=== PATIENT | male | born 1985 | race Caucasian/White ===

== ENCOUNTER 2019-05-18 02:58 | Inpatient (IN) | payer BC ==
[~2019-05-18] VITALS: Ht 185.4 cm; Wt 99.8 kg
[2019-05-18 03:00] VITALS: BP 173/100
[2019-05-18] MEDS ORDERED: MORPHINE SULFATE 4 MG/ML SYR IVP ONE (03:20)
[2019-05-18 03:41] LABS: BASOPHILS % (AUTO) 0.4 % (0.0-2.0); EOSINOPHILS # (AUTO) 0.3 K/uL (0-0.4); EOSINOPHILS % (AUTO) 4.6 % (0.0-4.0); HEMATOCRIT 42.2 % (36-52); HEMOGLOBIN 14.1 g/dL (12.0-18.0); LYMPHOCYTES # (AUTO) 1.6 K/uL (2.0-11.5); LYMPHOCYTES % (AUTO) 24.6 % (20.5-51.1); MEAN CORPUSCULAR HEMOGLOBIN 30 pg (27-31); MEAN CORPUSCULAR HGB CONC 33 g/dL (33-37); MEAN CORPUSCULAR VOLUME 88.6 fL (80-94); MONOCYTES # (AUTO) 0.6 K/uL (0.8-1.0); MONOCYTES % (AUTO) 9.4 % (1.7-9.3); PLATELET COUNT (AUTO) 270 K/uL (140-450); RED BLOOD CELL COUNT(AUTO) 4.76 MIL/uL (4.20-6.10); RED CELL DISTRIBUTION WIDTH 13.3 % (11.6-13.7); WHITE BLOOD COUNT (AUTO) 6.5 K/uL (4.8-10.8)
[2019-05-18 03:57] LABS: ALBUMIN 3.3 g/dL (3.4-5.0); CARBON DIOXIDE 27.9 mmol/L (21-32); CREATININE 0.9 mg/dL (0.7-1.3); POTASSIUM 3.9 mmol/L (3.5-5.1); TOTAL BILIRUBIN 0.6 mg/dL (0.0-1.0)
[2019-05-18] MEDS ORDERED: HYDR-5092 PO (06:47)
[2019-05-18] MEDS ORDERED: ONDANSETRON 4 MG/2 ML VIAL IVP PRN (06:50)
[2019-05-18] MEDS: DEXT 5% / NACL 0.9% 500 ML IV SCH ×4 (06:50→23:00)
[2019-05-18] MEDS ORDERED: ACETAMINOPHEN 325 MG TAB PO PRN (06:50)
[2019-05-18] MEDS ORDERED: metroNIDAZOLE 500 MG/NS PREMIX 100 ML IV SCH (07:11)
[2019-05-18 08:00] VITALS: BP 141/89
[2019-05-18 08:23] LABS: PROTHROMBIN TIME 9.2 secs (10.8-13.4)
[2019-05-18 08:25] LABS: FREE T4 (FREE THYROXINE) 0.99 ng/dL (0.76-1.46); PHOSPHORUS 2.6 mg/dL (2.5-4.9); THYROID STIMULATING HORMONE 2.65 uIU/mL (0.34-3.74)
[2019-05-18] MEDS: LACTOBACILLUS RHAMNOSUS GG 1 EACH CAP PO SCH (08:43)
[2019-05-18] MEDS: DOCUSATE SODIUM 100 MG GELCAP PO SCH ×2 (08:43→21:00)
[2019-05-18] MEDS: HYDROcodone/APAP 7.5/325 MG 1 TAB PO PRN ×3 (09:56→21:36)
[2019-05-18 12:00] VITALS: BP 141/89
[2019-05-18] MEDS: metroNIDAZOLE 500 MG/NS PREMIX 100 ML IV SCH ×2 (13:25→21:34)
[2019-05-18 16:00] VITALS: BP 135/89
[2019-05-18 16:47] LABS: APPEARANCE,URINE CLEAR (CLEAR); BILIRUBIN,URINE NEGATIVE (NEGATIVE); BLOOD, URINE NEGATIVE (NEGATIVE); COLOR,URINE YELLOW (YELLOW); LEUKOCYTE ESTERASE ,URINE NEGATIVE (NEGATIVE); NITRITE, URINE NEGATIVE (NEGATIVE); UGLUCOSE NEGATIVE (NEGATIVE)
[2019-05-18 16:58] LABS: BARBITURATE, URINE NEG. ng/ml (NEG <=200); BENZODIAZEPINE, URINE NEG. ng/mL (NEG <=200); CANNABINOID, URINE NEG. ng/mL (NEG <=50); COCAINE, URINE NEG. ng/mL (NEG <=300); OPIATE, URINE POS. ng/mL (NEG <=2000); PHENCYCLIDINE SCREEN,URINE NEG. ng/mL (NEG <=25)
[2019-05-18 20:00] VITALS: BP 131/86
[2019-05-18] MEDS: ZOLPIDEM 5 MG TAB PO PRN (23:32)
[2019-05-19] MEDS: DEXT 5% / NACL 0.9% 500 ML IV SCH (02:50)
[2019-05-19] MEDS: metroNIDAZOLE 500 MG/NS PREMIX 100 ML IV SCH ×3 (05:40→20:01)
[2019-05-19 06:08] LABS: ANION GAP 9.5 (8-16); CARBON DIOXIDE 28.8 mmol/L (21-32); CREATININE 0.8 mg/dL (0.7-1.3); POTASSIUM 4.3 mmol/L (3.5-5.1)
[2019-05-19 06:23] LABS: CHOL/HDL RATIO 4.3 (1-4.5); MAGNESIUM 1.9 mg/dL (1.8-2.4); PHOSPHORUS 3.2 mg/dL (2.5-4.9)
[2019-05-19 07:03] LABS: BASOPHILS % (AUTO) 0.4 % (0.0-2.0); EOSINOPHILS # (AUTO) 0.3 K/uL (0-0.4); EOSINOPHILS % (AUTO) 5.3 % (0.0-4.0); HEMATOCRIT 42.4 % (36-52); HEMOGLOBIN 14.2 g/dL (12.0-18.0); LYMPHOCYTES # (AUTO) 1.6 K/uL (2.0-11.5); LYMPHOCYTES % (AUTO) 26.2 % (20.5-51.1); MEAN CORPUSCULAR HEMOGLOBIN 30 pg (27-31); MEAN CORPUSCULAR HGB CONC 34 g/dL (33-37); MEAN CORPUSCULAR VOLUME 89.6 fL (80-94); MONOCYTES # (AUTO) 0.6 K/uL (0.8-1.0); MONOCYTES % (AUTO) 10.5 % (1.7-9.3); NEUTROPHILS # (AUTO) 3.5 K/uL (1.8-7.7); NEUTROPHILS % (AUTO) 57.6 % (42.2-75.2); PLATELET COUNT (AUTO) 275 K/uL (140-450); RED BLOOD CELL COUNT(AUTO) 4.73 MIL/uL (4.20-6.10); RED CELL DISTRIBUTION WIDTH 13.3 % (11.6-13.7); WHITE BLOOD COUNT (AUTO) 6.1 K/uL (4.8-10.8)
[2019-05-19 08:00] VITALS: BP 143/96
[2019-05-19] MEDS: LACTOBACILLUS RHAMNOSUS GG 1 EACH CAP PO SCH (08:38)
[2019-05-19] MEDS: DOCUSATE SODIUM 100 MG GELCAP PO SCH ×2 (08:38→20:01)
[2019-05-19] MEDS: DEXT 5% /NACL 0.9% 1,000 ML IV SCH ×5 (08:45→23:58)
[2019-05-19] MEDS ORDERED: BUPIVACAINE-MPF/EPI 0.25% 30 ML VIAL INJ ONE (09:46)
[2019-05-19] MEDS ORDERED: ONDANSETRON 4 MG/2 ML VIAL ONE (09:49)
[2019-05-19] MEDS ORDERED: SUCCINYLCHOLINE CHLORIDE 200 MG/10 ML VIAL IVP ONE (09:49)
[2019-05-19] MEDS ORDERED: GLYCOPYRROLATE 0.2 MG/ML VIAL ONE (09:49)
[2019-05-19] MEDS ORDERED: KETOROLAC 30 MG/ML VIAL ONE (09:49)
[2019-05-19] MEDS ORDERED: PROPOFOL 200 MG/20 ML VIAL IV ONE (09:49)
[2019-05-19] MEDS ORDERED: NEOSTIGMINE 1:1000 10 MG/10 ML VIAL ONE (09:49)
[2019-05-19] MEDS ORDERED: DESFLURANE 240 ML BTL INH ONE (09:49)
[2019-05-19] MEDS ORDERED: DEXAMETHASONE 4 MG/ML VIAL ONE (09:49)
[2019-05-19] MEDS ORDERED: ROCURONIUM 50 MG/5 ML VIAL IV ONE (09:49)
[2019-05-19] MEDS ORDERED: HYDROmorphone PFS 2 MG/ML SYR ONE ×3 (09:59→11:35)
[2019-05-19] MEDS ORDERED: fentaNYL 0.05 MG/ML VIAL ONE (09:59)
[2019-05-19] MEDS ORDERED: ONDANSETRON 4 MG/2 ML VIAL IVP PRN (11:10)
[2019-05-19] MEDS: HYDROmorphone 1 MG/ML AMP IVP PRN ×4 (11:20→11:50)
[2019-05-19] MEDS ORDERED: DOCU-299 PO (11:49)
[2019-05-19] MEDS: HYDROcodone/APAP 7.5/325 MG 1 TAB PO PRN (12:10)
[2019-05-19] MEDS ORDERED: KETOROLAC 30 MG/ML VIAL IVP SCH (13:00)
[2019-05-19 16:00] VITALS: BP 131/78
[2019-05-19] MEDS: HYDROcodone/APAP 10/325 MG 1 TAB TAB PO PRN (16:30)
[2019-05-19 19:58] VITALS: BP 145/89
[2019-05-19] MEDS: KETOROLAC 15 MG/ML VIAL IVP PRN (20:01)
[2019-05-20 00:02] VITALS: BP 143/81
[2019-05-20] MEDS: ZOLPIDEM 5 MG TAB PO PRN (00:06)
[2019-05-20 04:00] VITALS: BP 135/94
[2019-05-20] MEDS: KETOROLAC 15 MG/ML VIAL IVP PRN ×2 (04:03→09:30)
[2019-05-20] MEDS: metroNIDAZOLE 500 MG/NS PREMIX 100 ML IV SCH ×2 (04:03→12:45)
[2019-05-20 06:41] LABS: ANION GAP 11.4 (8-16); CARBON DIOXIDE 27.4 mmol/L (21-32); CREATININE 0.7 mg/dL (0.7-1.3); POTASSIUM 3.8 mmol/L (3.5-5.1)
[2019-05-20 06:47] LABS: MAGNESIUM 2.1 mg/dL (1.8-2.4); PHOSPHORUS 3.6 mg/dL (2.5-4.9)
[2019-05-20 07:23] LABS: BASOPHILS % (AUTO) 0.1 % (0.0-2.0); EOSINOPHILS % (AUTO) 0.2 % (0.0-4.0); HEMATOCRIT 39.9 % (36-52); HEMOGLOBIN 13.4 g/dL (12.0-18.0); LYMPHOCYTES # (AUTO) 1.6 K/uL (2.0-11.5); LYMPHOCYTES % (AUTO) 15.6 % (20.5-51.1); MEAN CORPUSCULAR HEMOGLOBIN 30 pg (27-31); MEAN CORPUSCULAR HGB CONC 34 g/dL (33-37); MEAN CORPUSCULAR VOLUME 89.9 fL (80-94); MONOCYTES # (AUTO) 0.9 K/uL (0.8-1.0); MONOCYTES % (AUTO) 8.4 % (1.7-9.3); NEUTROPHILS % (AUTO) 75.7 % (42.2-75.2); PLATELET COUNT (AUTO) 283 K/uL (140-450); RED BLOOD CELL COUNT(AUTO) 4.44 MIL/uL (4.20-6.10); RED CELL DISTRIBUTION WIDTH 13.5 % (11.6-13.7); WHITE BLOOD COUNT (AUTO) 10.6 K/uL (4.8-10.8)
[2019-05-20] MEDS: HYDROcodone/APAP 10/325 MG 1 TAB TAB PO PRN ×2 (07:33→12:41)
[2019-05-20 08:00] VITALS: BP 144/92
[2019-05-20] MEDS ORDERED: IBUP200C97 PO (08:36)
[2019-05-20] MEDS: LACTOBACILLUS RHAMNOSUS GG 1 EACH CAP PO SCH (09:30)
[2019-05-20] MEDS: DOCUSATE SODIUM 100 MG GELCAP PO SCH (09:30)
[2019-05-20 11:18] LABS: ALBUMIN 3.1 g/dL (3.4-5.0); BILIRUBIN,DIRECT 0.1 mg/dL (0.0-0.3); TOTAL BILIRUBIN 0.7 mg/dL (0.0-1.0)
== END 2019-05-20 16:10 | disposition home or self-care (01) | DRG 417 ==
LOC: MED 02:58 → MTU 06:58
PROVIDERS: ADMIT General Practice; ATTEND General Practice
PROC: 0FT44ZZ Resection of Gallbladder, Percutaneous Endoscopic Approach (ICD-10-PCS; principal; 2019-05-19 09:30)
DX: K80.62 Calculus of gallbladder and bile duct with acute cholecystitis without obstruction (principal); K65.9 Peritonitis, unspecified; J18.9 Pneumonia, unspecified organism; E66.9 Obesity, unspecified; K76.0 Fatty (change of) liver, not elsewhere classified; E66.01 Morbid (severe) obesity due to excess calories; Z68.29 Body mass index [BMI] 29.0-29.9, adult; I10 Essential (primary) hypertension; K21.9 Gastro-esophageal reflux disease without esophagitis; L89.90 Pressure ulcer of unspecified site, unspecified stage; M54.5 Low back pain; F17.210 Nicotine dependence, cigarettes, uncomplicated; R73.03 Prediabetes; E78.5 Hyperlipidemia, unspecified
CPT/HCPCS: 36415; 71045; 76705; 80048; 80053; 80076; 80305; 81003; 82150; 82374; 83036; 83690; 83735; 83880; 84100; 84439; 84443; 84484; 85025; 85610; 85730; 86886; 86900; 86901; 87081; 93005; 96374; 99284; J0330; J0696; J1100; J1170; J1885; J2270; J2405; J2704; J2710; J3010; J3490; J7030; J7042; J7060; Q0092